=== PATIENT | female | born 1995 | race African-American/Black ===

== ENCOUNTER 2017-01-19 10:11 | Emergency (ER) ==
[2017-01-19 10:16] VITALS: BP 136/85; TEMP 99.1; BMI 37.1
--- NOTE | 2017-01-19 10:31 | ED.PDOC ---
General ED Provider: Dr. SYDNIE SETH JR Chief Complaint: Knee Pain/Injury Stated Complaint: PATIENT STATES SHE WORKED ALL DAY YESTERDAY ON HER FEET AND NOTICED THE DAY WENT ON PAIN IN LEFT KNEE STARTED AND THEN CONTINUED TO GET WORSE. DOES NOT RECALL A SPECIFIC INJURY[ End ]99.1 85 14 98% 136/85 8/10 PATIENT HAS SWELLING AND TENDERNESS OVER SCARRED AREA.[End]edema inferior aspect left knee Time Seen by Physician: 10:30 Mode of Arrival: Walk-In Information Source: Patient Exam Limitations: No limitations Nursing and Triage Documentation Reviewed and Agree: No Review of Systems - Review Of Systems Constitutional: Reports: No symptoms Eyes: Reports: No symptoms Ears, Nose, Mouth, Throat: Reports: No symptoms Respiratory: Reports: No symptoms Cardiac: Reports: No symptoms GI: Reports: No symptoms : Reports: No symptoms Musculoskeletal: Reports: Joint pain, Joint swelling Skin: Reports: No symptoms Neurological: Reports: No symptoms Endocrine: Reports: No symptoms Hematologic/Lymphatic: Reports: No symptoms All Other Systems: Other Past Medical History - Past Medical History Endocrine: Reports: None Cardiovascular: Reports: None Respiratory: Reports: None Hematological: Reports: None Gastrointestinal: Reports: None Genitourinary: Reports: None Neuro/Psych: Reports: None Musculoskeletal: Reports: None Cancer: Reports: None (LEFT FOOT SURGERY LEFT KNEE SURGERY[ End ]) Last Menstrual Period: NEXPLENON DOES NOT HAVE THEM - Surgical History General Surgical History: Reports: Orthopedic (triple ligament repair hamstring donor left knee,LEFT FOOT SURGERY LEFT KNEE SURGERY) - Family History Family History: Reports: Unknown - Social History Smoking Status: Never smoker Hx Substance Use: No Alcohol Screening: None Physical Exam - Physical Exam Appearance: Well-appearing, Obese Pain Distress: Moderate Neck: Supple Respiratory: Airway patent Musculoskeletal: Normal strength, Limited ROM (left knee), Edema (knee effusion on exam ligaments not tested due to discomfort) Skin: Warm, Dry, Normal color Neurological: Sensation intact, Motor intact, Reflexes intact, Cranial nerves intact, Alert, Oriented Critical Care Note - Critical Care Note Total Time (mins): 0 Course - Course Orders, Labs, Meds: Orders Category Date Time Status KNEE, LEFT 4 VIEWS Stat RADS 01/19/17 10:30 Completed Vital Signs: Temp Pulse Resp BP Pulse Ox 01/19/17 10:14 99.1 F 85 14 136/85 98 Departure - Departure Time of Disposition: 12:01 Disposition: HOME SELF-CARE Discharge Problem: Knee sprain Instructions: Knee Sprain (ED) Condition: Good Pt referred to PMD for follow-up: Yes Additional Instructions: danny for comfort limit weight for two days follow up with PMD one week consider orthopedic evaluation ICE 20 minutes three times a day elevate leg two hours twice a day ibuprofen for pain and swelling [place] for pain not controlled Prescriptions: Hydrocodone Bit/Acetaminophen [[place] 5-325] 1 - 2 tab PO Q6HR PRN #12 tablet PRN Reason: pain Ibuprofen [Motrin] 600 mg PO QID PRN #30 tablet PRN Reason: PAIN Allergies/Adverse Reactions: Allergies BRAZELLE NUTS Adverse Reaction (Uncoded 01/19/17 10:17) OATMEAL CREAM PIE Adverse Reaction (Uncoded 01/19/17 10:17) Home Medications: Ambulatory Orders Hydrocodone Bit/Acetaminophen [[place] 5-325] 1 - 2 tab PO Q6HR PRN #12 tablet Ibuprofen [Motrin] 600 mg PO QID PRN #30 tablet 01/19/17
--- NOTE | 2017-01-19 11:27 | DI ---
EXAM: Radiographs, left knee HISTORY: Left knee pain. COMPARISON: 06/11/2015. TECHNIQUE: Four views. FINDINGS: Suspect previous anterior cruciate ligamentous repair. No acute fracture or dislocation identified. Joint spaces are maintained. Soft tissues are unremarkable. IMPRESSION: No fracture or dislocation.
== END 2017-01-19 12:11 | disposition home or self-care (01) ==
LOC: ED 10:11
DX: S83.92XA Sprain of unspecified site of left knee, initial encounter (principal)
CPT/HCPCS: 99283

== ENCOUNTER 2017-03-14 14:49 | Emergency (ER) ==
[2017-03-14 14:55] VITALS: BP 122/77; TEMP 97.9; BMI 36.3
--- NOTE | 2017-03-14 15:17 | ED.PDOC ---
General ED Provider: Dr. SYDNIE SETH JR Chief Complaint: Sore Throat Stated Complaint: nasal congestion throat sore chills and fever 101 dizzy] since yesterday 97.9 73 16 97% 122/77 05/08 Time Seen by Physician: 15:07 Mode of Arrival: Walk-In Information Source: Patient Exam Limitations: No limitations Nursing and Triage Documentation Reviewed and Agree: No Review of Systems - Review Of Systems Constitutional: Reports: Fever, Malaise, Weakness Eyes: Reports: No symptoms Ears, Nose, Mouth, Throat: Reports: Throat pain Respiratory: Reports: Other. Denies: Cough Cardiac: Reports: No symptoms GI: Reports: No symptoms : Reports: No symptoms Musculoskeletal: Reports: Muscle pain Skin: Reports: No symptoms Neurological: Reports: No symptoms Endocrine: Reports: No symptoms Hematologic/Lymphatic: Reports: No symptoms All Other Systems: Other Past Medical History - Past Medical History Endocrine: Reports: None Cardiovascular: Reports: None Respiratory: Reports: None Hematological: Reports: None Gastrointestinal: Reports: None Genitourinary: Reports: None Neuro/Psych: Reports: None Musculoskeletal: Reports: None Cancer: Reports: None (LEFT FOOT SURGERY LEFT KNEE SURGERY[ End ]) Last Menstrual Period: one month ago/implanon - Surgical History General Surgical History: Reports: Orthopedic (triple ligament repair hamstring donor left knee,LEFT FOOT SURGERY LEFT KNEE SURGERY) - Family History Family History: Reports: Unknown - Social History Smoking Status: Never smoker Hx Substance Use: No Alcohol Screening: None Physical Exam - Physical Exam Appearance: Well-appearing, Obese Pain Distress: Moderate Eyes: SANAZ, EOMI, Conjunctiva clear ENT: Ears normal, Nose normal, Oropharynx normal Neck: Supple (tender LAD) Respiratory: Airway patent, Breath sounds clear, Breath sounds equal, Respirations nonlabored Cardiovascular: RRR, Pulses normal, No rub, No murmur GI/: Soft, Nontender, No masses, Bowel sounds normal, No Organomegaly Musculoskeletal: Normal strength, ROM intact, No edema, No calf tenderness Skin: Warm, Dry, Normal color Neurological: Sensation intact, Motor intact, Reflexes intact, Cranial nerves intact, Alert, Oriented Psychiatric: Affect appropriate, Mood appropriate Critical Care Note - Critical Care Note Total Time (mins): 0 Course - Course Vital Signs: Temp Pulse Resp BP Pulse Ox 03/14/17 14:51 97.9 F 73 16 122/77 97 Departure - Departure Time of Disposition: 15:22 Disposition: HOME SELF-CARE Discharge Problem: Sore throat symptom Instructions: Pharyngitis (ED) Condition: Fair Pt referred to PMD for follow-up: Yes Additional Instructions: chloraseptic spray for sore throat Tylenol and or NSAIDS for aches and pain (NSAIDS = naproxen ibuprofen etc) antibiotic for sore throat with tender nodes and fever Robitussin AC only if needed for cough Prescriptions: Naproxen [Naprosyn] 500 mg PO Q12HR PRN #30 tablet PRN Reason: PAIN Cephalexin [Keflex] 500 mg PO QID #40 capsule Guaifenesin/Codeine Phosphate [Robitussin AC Syrup] 10 ml PO Q6H PRN #240 ml PRN Reason: Cough Allergies/Adverse Reactions: Allergies BRAZELLE NUTS Adverse Reaction (Uncoded 03/14/17 14:55) OATMEAL CREAM PIE Adverse Reaction (Uncoded 03/14/17 14:55) Home Medications: Ambulatory Orders Cephalexin [Keflex] 500 mg PO QID #40 capsule 03/14/17 Guaifenesin/Codeine Phosphate [Robitussin AC Syrup] 10 ml PO Q6H PRN #240 ml Naproxen [Naprosyn] 500 mg PO Q12HR PRN #30 tablet 03/14/17
[2017-03-14 15:37] LABS: FLU INTERNAL QC INTERNAL QC VALID; RAPID FLU A NEGATIVE (NEGATIVE); RAPID FLU B NEGATIVE (NEGATIVE)
== END 2017-03-14 15:59 | disposition home or self-care (01) ==
LOC: ED 14:49
DX: J02.9 Acute pharyngitis, unspecified (principal)
CPT/HCPCS: 87651; 87804; 87880; 99282

== ENCOUNTER 2017-05-31 13:58 | Emergency (ER) ==
[2017-05-31 14:04] VITALS: BP 123/77; TEMP 98; BMI 40.3
--- NOTE | 2017-05-31 14:17 | ED.PDOC ---
General ED Provider: Dr. MACIEL PARRISH Chief Complaint: Foot Pain/Injury Stated Complaint: foot pain Time Seen by Physician: 14:00 (seen with sabrina barrios RN at all times no injury) Mode of Arrival: Walk-In Information Source: Patient Exam Limitations: No limitations Nursing and Triage Documentation Reviewed and Agree: Yes Musculoskeletal Complaint Exam - Ankle/Foot Complaint/Exam Location of Injury: Reports: Right, Ankle, Foot Mechanism of Injury: Reports: No known trauma Onset/Duration: 21 days Symptoms Are: Reports: Still present Onset of Pain: Reports: Weeks Initial Severity: Mild Current Severity: Mild Location: Reports: Discrete Character: Reports: Aching Alleviating: Reports: Rest, Position Aggravating: Reports: Movement Able to Bear Weight: Yes Associated Signs and Symptoms: Denies: Swelling, Redness, Bruising, Fever, Weakness, Numbness, Tingling Related History: Reports: Similar episode Gout Risk Factors: Reports: None Related Surgical History: Reports: None Achilles Tendon Abnormality: No Differential Diagnosis: Closed Fracture, Sprain, Strain, Tendonitis Review of Systems - Review Of Systems Constitutional: Reports: No symptoms Eyes: Reports: No symptoms Ears, Nose, Mouth, Throat: Reports: No symptoms Respiratory: Reports: No symptoms Cardiac: Reports: No symptoms GI: Reports: No symptoms : Reports: No symptoms Musculoskeletal: Reports: Joint pain Skin: Reports: No symptoms Neurological: Reports: No symptoms Endocrine: Reports: No symptoms Hematologic/Lymphatic: Reports: No symptoms All Other Systems: Reviewed and Negative Past Medical History - Past Medical History Endocrine: Reports: None Cardiovascular: Reports: None Respiratory: Reports: None Hematological: Reports: None Gastrointestinal: Reports: None Genitourinary: Reports: None Neuro/Psych: Reports: None Musculoskeletal: Reports: None Cancer: Reports: None (LEFT FOOT SURGERY LEFT KNEE SURGERY[ End ]) Last Menstrual Period: NA - Surgical History General Surgical History: Reports: Orthopedic (triple ligament repair hamstring donor left knee,LEFT FOOT SURGERY LEFT KNEE SURGERY) - Family History Family History: Reports: Unknown - Social History Smoking Status: Never smoker Hx Substance Use: No Alcohol Screening: None - Immunizations Tetanus Shot up to Date: No Physical Exam - Physical Exam Appearance: Well-appearing, No pain distress, Well-nourished Eyes: SANAZ, EOMI, Conjunctiva clear ENT: Ears normal, Nose normal, Oropharynx normal Respiratory: Airway patent, Breath sounds clear, Breath sounds equal, Respirations nonlabored Cardiovascular: RRR, Pulses normal, No rub, No murmur GI/: Soft, Nontender, No masses, Bowel sounds normal, No Organomegaly Musculoskeletal: Normal strength, ROM intact, No edema, No calf tenderness Skin: Warm, Dry, Normal color Neurological: Sensation intact, Motor intact, Reflexes intact, Cranial nerves intact, Alert, Oriented Psychiatric: Affect appropriate, Mood appropriate Interpretation - Radiology Interpretation Radiology Interpretation By: Radiologist Radiology Results: No acute changes Critical Care Note - Critical Care Note Total Time (mins): 0 Course - Course Orders, Labs, Meds: Orders Category Date Time Status ANKLE, RIGHT MIN 3 VIEWS Stat RADS 05/31/17 14:10 Ordered FOOT, RIGHT 3 VIEWS Stat RADS 05/31/17 14:10 Ordered Vital Signs: Temp Pulse Resp BP Pulse Ox 05/31/17 14:00 98 F 76 16 123/77 98 Departure - Departure Time of Disposition: 15:00 Disposition: HOME SELF-CARE Discharge Problem: Sprain of foot, right Qualifiers: Encounter type: initial encounter Qualifier Code: (S93.601A) Unspecified sprain of right foot, initial encounter Instructions: Foot Sprain (ED) Condition: Good Pt referred to PMD for follow-up: Yes Additional Instructions: Please call your Family Physician as soon as possible to schedule a follow-up appointment. Allergies/Adverse Reactions: Allergies BRAZELLE NUTS Adverse Reaction (Uncoded 05/31/17 14:05) OATMEAL CREAM PIE Adverse Reaction (Uncoded 05/31/17 14:05) Home Medications: Ambulatory Orders 1 [No Reported Medications] 05/31/17
--- NOTE | 2017-05-31 14:37 | DI ---
EXAM: Three views of the right foot. History: Right foot pain. Findings: No acute fracture or dislocation. No abnormal calcifications or radiopaque foreign iris s. Joint spaces are preserved. Impression: Unremarkable exam.
--- NOTE | 2017-05-31 14:39 | DI ---
Exam: Three x-rays of the right ankle. Comparison: None available. Reason for exam: Pain. FINDINGS: No acute fracture or malalignment. The talar dome is intact. Image interpretation is so mewhat limited by non orthogonal imaging. No obvious widening of the medial or lateral clear space. Impression: No obvious fracture or malalignment in the right ankle although interpretation is limited by non or thogonal imaging.
== END 2017-05-31 14:59 | disposition home or self-care (01) ==
LOC: ED 13:58
DX: S93.601A Unspecified sprain of right foot, initial encounter (principal)
CPT/HCPCS: 99282

== ENCOUNTER 2018-07-22 01:50 | Emergency (ER) ==
[2018-07-22 01:59] VITALS: BP 131/81; TEMP 98.4; BMI 41.5
[2018-07-22] MEDS ORDERED: SOLU-MEDROL 125 MG IM STA (02:16)
[2018-07-22] MEDS ORDERED: DUONEB NEB STA (02:16)
--- NOTE | 2018-07-22 02:19 | ED.PDOC ---
General ED Provider: Dr. ANDREA YANG Chief Complaint: Shortness of Air Stated Complaint: Patient states that she has had asthma attacks this month more than usual. She has been on steroids and antibiotics for bronchitis. States that today symptoms got worse due to the rain all day. Does not use Steroid inhailer. Time Seen by Physician: 02:10 Mode of Arrival: Walk-In Information Source: Patient Exam Limitations: No limitations Nursing and Triage Documentation Reviewed and Agree: Yes Does patient meet sepsis criteria?: No System Inflammatory Response Syndrome: Not Applicable Sepsis Protocol: For patient's 13 years and over: Temp is 96.8 and below OR 101 and greater Pulse >90 BPM Resp >20/minute Acutely Altered Mental Status Are patient's symptoms suggestive of a new infection, such as: -Pneumonia -Skin, Soft Tissue -Endocarditis -UTI -Bone, Joint Infection -Implantable Device -Acute Abdominal Infection -Wound Infection -Meningitis -Blood Stream Catheter Infection -Unknown Respiratory Complaint Exam - Asthma Complaint/Exam Onset/Duration: 1 week Symptoms Are: Still present Timing: Intermittent Initial Severity: Mild Current Severity: Moderate Character: Reports: Wheezing, Non-productive cough Aggravating: Reports: Weather change Alleviating: Reports: Steroids, Nebulizers Associated Signs and Symptoms: Reports: SOA, Labored breathing Related Surgical History: Reports: None Status Asthmaticus Risk Factors: Reports: None Current Asthma Medication Usage: Yes (MDI Albuterol ) Recent Antibiotics: Yes Respiratory Distress: Moderate Accessory Muscle Use: No Retractions: Not Present Diminished Breath Sounds: No Prolonged Expiratory Phase: Yes Unable to Speak Full Sentences: Yes Fatigue Present: No Differential Diagnoses: Acute Asthma, Bronchospasm Review of Systems - Review Of Systems Constitutional: Reports: No symptoms Eyes: Reports: No symptoms Ears, Nose, Mouth, Throat: Reports: No symptoms Respiratory: Reports: Short of air, Wheezing Cardiac: Reports: No symptoms GI: Reports: No symptoms : Reports: No symptoms Musculoskeletal: Reports: No symptoms Skin: Reports: No symptoms Neurological: Reports: Anxiety Endocrine: Reports: No symptoms Hematologic/Lymphatic: Reports: No symptoms All Other Systems: Reviewed and Negative Past Medical History - Past Medical History Previously Healthy: Yes Endocrine: Reports: None Cardiovascular: Reports: None Respiratory: Reports: Asthma Hematological: Reports: None Gastrointestinal: Reports: None Genitourinary: Reports: None Neuro/Psych: Reports: None Musculoskeletal: Reports: None Cancer: Reports: None (LEFT FOOT SURGERY LEFT KNEE SURGERY[ End ]) Last Menstrual Period: PRESENTLY - Surgical History General Surgical History: Reports: Orthopedic (triple ligament repair hamstring donor left knee,LEFT FOOT SURGERY LEFT KNEE SURGERY) - Family History Family History: Reports: Unknown - Social History Smoking Status: Never smoker Hx Substance Use: No Alcohol Screening: None - Immunizations Tetanus Shot up to Date: No Physical Exam - Physical Exam Appearance: Ill-appearing, No pain distress, Well-nourished Ill-appearing: Moderate Eyes: SANAZ, EOMI, Conjunctiva clear ENT: Nose normal, Oropharynx normal Neck: Supple Respiratory: Breath sounds diminished, Wheezes Cardiovascular: RRR, Pulses normal, No rub, No murmur GI/: No masses, Bowel sounds normal, No Organomegaly Musculoskeletal: Normal strength, ROM intact, No edema, No calf tenderness Skin: Warm, Dry, Normal color Neurological: Sensation intact, Motor intact, Cranial nerves intact, Alert, Oriented Psychiatric: Affect appropriate, Mood appropriate Re-Evaluation - Re-Evaluation Time of Re-Evaluation: 02:10 Status: Improved Vital Signs Stable: Yes Appearance: NAD Lungs: Clear Critical Care Note - Critical Care Note Total Time (mins): 15 Course - Course Orders, Labs, Meds: Orders Category Date Time Status NEBULIZER TREATMENT Stat CARDIO 07/22/18 02:16 Completed Ipratropium/Albuterol Neb [Duoneb] MEDS 07/22/18 02:16 Discontinued 1 vial NEB ONCE STA Methylprednisolone Sod Succ/Pf [Solu-Medrol 125 mg] MEDS 07/22/18 02:16 Discontinued 125 mg IM ONCE STA Medications Discontinued Medications Generic Name Dose Route Start Last Admin Trade Name David PRN Reason Stop Dose Admin Albuterol/Ipratropium 1 vial 07/22/18 02:16 07/22/18 02:23 Duoneb NEB 07/22/18 02:17 1 vial ONCE STA Administration Methylprednisolone Sodium Succinate 125 mg 07/22/18 02:16 07/22/18 02:27 Solu-Medrol 125 Mg IM 07/22/18 02:17 125 mg ONCE STA Administration Vital Signs: Temp Pulse Resp BP Pulse Ox 07/22/18 01:50 98.4 F 81 20 131/81 96 Departure - Departure Time of Disposition: 02:29 Disposition: HOME SELF-CARE Discharge Problem: Asthma attack Qualifiers: Asthma severity: moderate Asthma persistence: persistent Qualified Code(s): J45.41 - Moderate persistent asthma with (acute) exacerbation Instructions: Asthma (ED), Wheezing (ED) Condition: Stable Pt referred to PMD for follow-up: Yes IPMP verified?: No Additional Instructions: Follow up with your PCP to see you would qualify for Home nebulizer machine. You may need to be on steroid inhailer too. Prescriptions: Prednisone 20 mg PO DAILYWM #5 tablet Allergies/Adverse Reactions: Allergies BRAZELLE NUTS Adverse Reaction (Uncoded 07/22/18 01:59) OATMEAL CREAM PIE Adverse Reaction (Uncoded 07/22/18 01:59) Home Medications: Ambulatory Orders Etonogestrel [Nexplanon] 68 mg SQ DIRECTED 07/04/18 Albuterol Sulfate 0.083% Neb [Albuterol 0.083% Neb] 1 vial NEB RTQ4H PRN Prednisone 20 mg PO DAILYWM #5 tablet 07/22/18 Disposition Discussed With: Patient, Family
== END 2018-07-22 02:50 | disposition home or self-care (01) ==
LOC: ED 01:50
DX: J45.41 Moderate persistent asthma with (acute) exacerbation (principal)
CPT/HCPCS: 94640; 96372; 99282